=== PATIENT | male | born 1970 | race Caucasian/White ===

== ENCOUNTER 2017-08-30 18:54 | Emergency (ER) | payer SELFPAY ==
[~2017-08-30] VITALS: Ht 167.6 cm; Wt 93.7 kg
[2017-08-30 18:56] VITALS: Ht 167.6 cm; Wt 93.7 kg
[2017-08-30 21:01] VITALS: BP 145/95
== END 2017-08-30 21:01 | disposition home or self-care (01) ==
LOC: ED 18:54
DX: S06.0X0A Concussion without loss of consciousness, initial encounter (principal); I10 Essential (primary) hypertension; E11.9 Type 2 diabetes mellitus without complications; X58.XXXA Exposure to other specified factors, initial encounter; Y93.89 Activity, other specified; Y92.89 Other specified places as the place of occurrence of the external cause; Y99.8 Other external cause status
CPT/HCPCS: J3010; Q0162